=== PATIENT | male | born 1965 | race Caucasian/White ===

== ENCOUNTER 2020-09-08 13:20 | Emergency (ER) | payer OTHER ==
[2020-09-08 13:25] VITALS: TEMP 97.8
[2020-09-08] MEDS ORDERED: Acetaminophen-Codeine 300-30mg TAB PO STA (14:24)
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
[2020-09-08] MEDS ORDERED: ACET/COD 300 MG/30 MG STARTER PACK 6 TAB BTL PO STA (15:49)
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
[2020-09-08 16:36] VITALS: BP 109/68; PULSE 83; RESP 12
== END 2020-09-08 16:46 | disposition home or self-care (01) ==
LOC: EC 13:20
DX: S16.1XXA Strain of muscle, fascia and tendon at neck level, initial encounter (principal); S83.91XA Sprain of unspecified site of right knee, initial encounter; F17.200 Nicotine dependence, unspecified, uncomplicated; V47.5XXA Car driver injured in collision with fixed or stationary object in traffic accident, initial encounter; Y92.410 Unspecified street and highway as the place of occurrence of the external cause
CPT/HCPCS: 70450; 71045; 72072; 72125; 99284

== ENCOUNTER 2022-05-03 11:16 | Emergency (ER) | payer BC, OTHER ==
[2022-05-03 11:20] VITALS: RESP 18; TEMP 97.9
[2022-05-03] MEDS ORDERED: BACITRACIN OINT 1 EACH PACKET TOPICAL ONE (12:13)
--- NOTE | 2022-05-03 12:15 | ED ---
Skin/Abscess/FB HPI - General Chief complaint: Skin/Abscess/Foreign Body Stated complaint: glass in foot Time Seen by Provider: 05/03/22 11:31 Source: patient Mode of arrival: ambulatory Limitations: no limitations - History of Present Illness Initial comments: 57-year-old male patient presenting to the emergency department today for evaluation of foreign body to the right heel. Patient states he stepped on broken glass last night and he believes there is a piece in there. States he did try multiple times to get it out but was unable to. Denies any significant pain to the area. Denies history of diabetes or neuropathy. Denies any fever or chills. Denies any other injuries or concerns. - Related Data Previous Rx's Medication Instructions Recorded Cephalexin [Keflex] 500 mg PO Q6HR #40 cap 05/03/22 Allergies Allergy/AdvReac Type Severity Reaction Status Date / Time No Known Allergies Allergy Verified 05/03/22 11:20 Review of Systems ROS Statement: Those systems with pertinent positive or pertinent negative responses have been documented in the HPI. ROS Other: All systems not noted in ROS Statement are negative. Past Medical History Past Medical History: No Reported History History of Any Multi-Drug Resistant Organisms: None Reported Past Surgical History: No Surgical Hx Reported Past Psychological History: No Psychological Hx Reported Smoking Status: Current every day smoker Past Alcohol Use History: Occasional Past Drug Use History: None Reported General Exam Limitations: no limitations General appearance: alert, in no apparent distress, other (This is a well- developed, well-nourished adult male in no acute distress.) ENT exam: Present: normal exam, normal oropharynx, mucous membranes moist Respiratory exam: Present: normal lung sounds bilaterally. Absent: respiratory distress, wheezes, rales, rhonchi, stridor Cardiovascular Exam: Present: regular rate, normal rhythm, normal heart sounds. Absent: systolic murmur, diastolic murmur, rubs, gallop, clicks Extremities exam: Present: full ROM, normal capillary refill, other (Small puncture wound noted to the right heel with presence of foreign body. No surrounding erythema or swelling. No tenderness.). Absent: normal inspection, tenderness, pedal edema, joint swelling, calf tenderness Neurological exam: Present: alert, oriented X3, CN II-XII intact Psychiatric exam: Present: normal affect, normal mood Skin exam: Present: warm, dry, intact, normal color. Absent: rash Course Vital Signs 05/03/22 05/03/22 11:17 12:35 Temperature 97.9 F 97.9 F Pulse Rate 106 H 74 Respiratory 18 18 Rate Blood Pressure 141/79 112/70 O2 Sat by Pulse 98 97 Oximetry Procedures - Forgein Body Removal Soft Tissue Consent Obtained: verbal consent Site: foot Foreign Body Suspected: Glass Foreign Body Removed: yes Foreign Body Removal Technique: Forceps Patient Tolerated Procedure: well, no complications Medical Decision Making - Medical Decision Making 57-year-old male patient presented to the emergency department today for evaluation of foreign body to the right heel. Did cleanse the area with iodine, removed foreign body with alligator forceps easily. Patient tolerated procedure well. I did discuss use of antibiotics for prophylaxis. Patient does not want to take them. I sent them to the pharmacy in case he starts having symptoms of infection. He was agreeable to this. He is instructed on with his primary care physician for recheck in 1-2 days. Return parameters were discussed in detail. He verbalizes understanding and agrees with this plan. My attending is Dr. Woods. Disposition Clinical Impression: Foreign body in foot, right Disposition: HOME SELF-CARE Condition: Good Instructions (If sedation given, give patient instructions): Soft Tissue Foreign Body (ED) Additional Instructions: Monitor for signs and symptoms of infection. Start antibiotics if you develop any redness, swelling, drainage, or fever. Follow up with primary care physician for recheck in 1-2 days. Return for any new worsening, or concerning symptoms. Prescriptions: Cephalexin [Keflex] 500 mg PO Q6HR #40 cap Is patient prescribed a controlled substance at d/c from ED?: No Referrals: None,Stated [Primary Care Provider] - 1-2 days Time of Disposition: 12:15
[2022-05-03 12:37] VITALS: BP 112/70; PULSE 74
== END 2022-05-03 12:38 | disposition home or self-care (01) ==
LOC: EC 11:16
DX: S90.851A Superficial foreign body, right foot, initial encounter (principal); F17.200 Nicotine dependence, unspecified, uncomplicated; W25.XXXA Contact with sharp glass, initial encounter
CPT/HCPCS: 99283

== ENCOUNTER 2023-03-28 14:54 | Observation (INO) | payer OTHER, BC ==
[2023-03-28] MEDS ORDERED: ORPHENADRINE 30 MG/ML 2 ML VIAL IM STA (15:17)
[2023-03-28] MEDS ORDERED: KETOROLAC 15 MG/ML 1 ML VIAL IM STA (15:17)
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
[2023-03-28] MEDS ORDERED: HYDROmorphone 0.5 MG/0.5 ML SYRINGE IVP STA (16:38)
[2023-03-28] MEDS ORDERED: SODIUM CHLORIDE 0.9% 500 ML 500 ML IV STA (16:39)
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
[2023-03-28 17:33] LABS: Basophils % (A) 0 %; Eosinophils # (A) 0.1 k/uL (0-0.7); Eosinophils % (A) 1 %; HCT 45.2 % (39.0-53.0); HGB 14.8 gm/dL (13.0-17.5); Lymphocytes # (A) 1.2 k/uL (1.0-4.8); Lymphocytes % (A) 14 %; MCH 30.6 pg (25.0-35.0); MCHC 32.8 g/dL (31.0-37.0); MCV 93.4 fL (80.0-100.0); Mean Platelet Volume 8.9; Monocytes # (A) 0.3 k/uL (0-1.0); Monocytes % (A) 4 %; Neutrophils # (A) 6.9 k/uL (1.3-7.7); Neutrophils % (A) 80 %; Platelet Count 144 k/uL (150-450); RBC 4.84 m/uL (4.30-5.90); RDW 12.9 % (11.5-15.5); WBC 8.7 k/uL (3.8-10.6)
[2023-03-28 17:38] LABS: ALT 63 U/L (4-49); AST 66 U/L (17-59); African American GFR (CKD) >90 (>60 ml/min/1.73 sqM); Albumin 4.9 g/dL (3.5-5.0); Alkaline Phosphatase 86 U/L (38-126); Anion Gap 11 mmol/L; Blood Urea Nitrogen 10 mg/dL (9-20); Calcium 8.9 mg/dL (8.4-10.2); Carbon Dioxide 23 mmol/L (22-30); Chloride 99 mmol/L (98-107); Glucose 69 mg/dL (74-99); Non-African American GFR(CKD) >90 (>60 ml/min/1.73 sqM); Potassium 4.3 mmol/L (3.5-5.1); Sodium 133 mmol/L (137-145); Total Bilirubin 0.5 mg/dL (0.2-1.3); Total Protein 7.8 g/dL (6.3-8.2)
[2023-03-28 17:43] LABS: INR 0.9 (<1.2); Prothrombin Time 9.8 sec (9.0-12.0)
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
[2023-03-28 17:58] LABS: Alcohol 89 mg/dL
[2023-03-28] MEDS ORDERED: HYDROmorphone 0.5 MG/0.5 ML SYRINGE IVP PRN (18:14)
[2023-03-28] MEDS ORDERED: NALOXONE 0.4 MG/ML 1 ML VIAL IV PRN (18:14)
[2023-03-28] MEDS ORDERED: ACETAMINOPHEN TAB 325 MG TAB PO PRN (18:14)
[2023-03-28] MEDS ORDERED: ONDANSETRON 4 MG/2 ML VIAL IVP PRN (18:14)
[2023-03-28] MEDS: SODIUM CHLORIDE 0.9% 1,000 ML IV SCH (23:20)
[2023-03-28] MEDS: HYDROmorphone 1 MG/ML 1 ML SYRINGE IVP PRN (23:20)
[2023-03-29 02:09] VITALS: PULSE 67
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
[2023-03-29] MEDS: HYDROmorphone 1 MG/ML 1 ML SYRINGE IVP PRN ×2 (03:25→08:43)
[2023-03-29] MEDS: SODIUM CHLORIDE 0.9% 1,000 ML IV SCH (08:45)
[2023-03-29 09:04] VITALS: BP 144/81; RESP 17; TEMP 97.7
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
== END 2023-03-29 11:00 | disposition home or self-care (01) ==
LOC: EC 14:54 → 4SSUR 18:14 → INTOOBSV 18:14 → 4SSUR 18:33 → UNDODISIN 03-29 11:00
PROVIDERS: ADMIT Orthopaedic Surgery Orthopaedic Surgery of the Spine; ATTEND Orthopaedic Surgery Orthopaedic Surgery of the Spine
PROC: 2W3SX1Z Immobilization of Right Foot using Splint (ICD-10-PCS; principal; 2023-03-28)
DX: S12.290A Other displaced fracture of third cervical vertebra, initial encounter for closed fracture (principal); D69.6 Thrombocytopenia, unspecified; S92.311A Displaced fracture of first metatarsal bone, right foot, initial encounter for closed fracture; E87.0 Hyperosmolality and hypernatremia; F10.129 Alcohol abuse with intoxication, unspecified; S12.191A Other nondisplaced fracture of second cervical vertebra, initial encounter for closed fracture; S92.811A Other fracture of right foot, initial encounter for closed fracture; S92.321A Displaced fracture of second metatarsal bone, right foot, initial encounter for closed fracture; S92.331A Displaced fracture of third metatarsal bone, right foot, initial encounter for closed fracture; M50.30 Other cervical disc degeneration, unspecified cervical region; M47.892 Other spondylosis, cervical region; M43.22 Fusion of spine, cervical region; R74.01 Elevation of levels of liver transaminase levels; E16.2 Hypoglycemia, unspecified; F17.200 Nicotine dependence, unspecified, uncomplicated; Y90.4 Blood alcohol level of 80-99 mg/100 ml; V49.49XA Driver injured in collision with other motor vehicles in traffic accident, initial encounter; Y92.410 Unspecified street and highway as the place of occurrence of the external cause; Z71.6 Tobacco abuse counseling
CPT/HCPCS: 96376 ×3; 29515; 96372; 96374; 99285; 36415; 93005; 86900; 86901; 80053; 84484; 85025; 85610; 85730; 86850; 80320; 73610; 73630; 71045; 72125; 70450; 70498; G0378 ×2; J2360; J1170 ×3; J1885; Q9967; 96361

== ENCOUNTER → 2024-03-31 | Outpatient (CLI) | payer BC ==
[2024-03-31 10:35] VITALS: BP 180/92; PULSE 89; RESP 15; TEMP 98.7
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
== END ==
LOC: PNWHC3 09:47
PROVIDERS: ATTEND Specialist
DX: M50.321 Other cervical disc degeneration at C4-C5 level (principal); M50.322 Other cervical disc degeneration at C5-C6 level; Z72.0 Tobacco use
CPT/HCPCS: 99211

== ENCOUNTER 2024-04-26 11:42 | Day surgery (SDC) | payer BC ==
[2024-04-26 12:27] VITALS: RESP 16; TEMP 98
[2024-04-26] MEDS: IV FLUID CONTINUATION 1,000 ML IV ONE ×2 (12:36→13:16)
[2024-04-26] MEDS: LACTATED RINGERS 1,000 ML IV SCH (12:37)
[2024-04-26] MEDS ORDERED: MIDAZOLAM 2 MG/2 ML VIAL ONE (12:50)
[2024-04-26] MEDS ORDERED: ROPIVACAINE 5MG/ML 20ML VIAL ONE (12:50)
[2024-04-26] MEDS ORDERED: fentaNYL (PF) 50 MCG/ML 2 ML AMP ONE (12:50)
--- NOTE | 2024-04-26 13:22 | P.PCN ---
Description of Procedure: Preprocedure diagnosis. Cervical facet joint arthropathy, cervical spine spondylosis, cervical degenerative disc disease. Postprocedure diagnosis. As above. Procedure done. Bilateral C4-5, C5-6 facet joint (C4, C5, C6 medial branch of dorsal ramus) diagnostic injection with local anesthetics under fluoroscopic guidance. Anesthesia. IV sedation of Versed milligram, fentanyl micrograms give in OR. Continuous pulse ox, EKG, blood pressure and verbal communication was maintained with the patient in OR. Blood loss. None. Indication. Patient has got the diagnoses of cervical spondylolysis, facet joint arthropathy with neck pain. Discussed with the patient procedure, alternatives, complications including infection, bleeding, nerve damage, paralysis all of which could be permanent. Patient understands and all questions are answered. Procedure note. After getting consent patient in OR in prone position. Back of the neck was prepped with chlorhexidine and draped in sterile fashion. After injecting 3 mL of plain 1% lidocaine subcutaneously, a 22-gauge spinal needle was introduced under tunnel vision of the fluoroscope AP view at the waist of the articular pillar (lateral mass) at C4 vertebral level. In the lateral view of the fluoroscope it was confirmed that the tip of the needle stayed within the dorsal half of the articular pillar (lateral mass). So, right C4-5 facet joint was targeted by blocking right C4 and C5 medial branch, right C5-6 facet joint was targeted by blocking right C5 and C6 medial branch. In exactly the same way , after subcutaneous injection of lidocaine, 22-gauge spinal needles were introduced under tunnel vision of the fluoroscope AP view at the waist of the articular pillars (lateral mass) at C5 and C6 vertebral level. In the lateral view of the fluoroscope it was confirmed that the tip of the needle stayed within the dorsal half of the articular pillar (lateral mass). At each needle, 0.5 mL of 0.5% ropivacaine preservative-free was injected. In exactly same way left C4-5, C5-6 facet joints were targeted by blocking left C4, C5, C6 medial branch of dorsal ramus. After the procedure needle was taken out and bandage was applied. Disposition. Patient tolerated the procedure well. No complication. Discharged home in stable condition.
[2024-04-26 13:38] VITALS: BP 132/84; PULSE 75
--- NOTE | 2024-04-26 15:15 | FL ---
EXAMINATION TYPE: FL guided pain mgmt statistic DATE OF EXAM: 04/26/2024 FLUOROSCOPY Fluoroscopy time of 58 seconds was used during cervicothoracic facet blocks. 2 image/s document/s th e procedure. [id number] mGycm2 DAP
== END 2024-04-26 13:51 | disposition home or self-care (01) ==
LOC: ORPAIN 11:42
PROVIDERS: ATTEND Pain Medicine Interventional Pain Medicine
DX: M47.812 Spondylosis without myelopathy or radiculopathy, cervical region (principal)
CPT/HCPCS: 64490; 64491; J2250; J3010; J2795; 99152

== ENCOUNTER → 2024-05-12 | Outpatient (CLI) | payer BC ==
[2024-05-12 09:26] VITALS: BP 123/88; PULSE 78; RESP 16
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
== END ==
LOC: PNWHC3 09:07
PROVIDERS: ATTEND Specialist
DX: M47.812 Spondylosis without myelopathy or radiculopathy, cervical region (principal); M50.320 Other cervical disc degeneration, mid-cervical region, unspecified level; M50.321 Other cervical disc degeneration at C4-C5 level; M50.322 Other cervical disc degeneration at C5-C6 level
CPT/HCPCS: 99211